=== PATIENT | female | born 1980 | race Two or more races ===

== ENCOUNTER → 2017-09-02 17:10 | Outpatient (CLI) | payer OTHER ==
[~2017-09-02] VITALS: Ht 152.4 cm; Wt 104.3 kg
[~2017-09-02 17:10] MED LIST: [UNRECOGNIZED DRUG - OTHER] PO
== END | disposition home or self-care (01) ==
LOC: PPHC 17:10
DX: R22.1 Localized swelling, mass and lump, neck (principal)

== ENCOUNTER → 2017-11-01 15:17 | Outpatient (CLI) | payer OTHER | END | disposition home or self-care (01) | LOC: RAD 15:17 | DX: M51.36 Other intervertebral disc degeneration, lumbar region (principal) ==

== ENCOUNTER → 2017-12-18 | Outpatient (CLI) | payer OTHER | END | disposition home or self-care (01) | LOC: PPHC 08:48 | DX: L03.311 Cellulitis of abdominal wall (principal) ==

== ENCOUNTER 2018-08-01 17:40 | Outpatient (CLI) | payer OTHER | END 2018-08-01 17:45 | disposition home or self-care (01) | LOC: LAB 17:40 | DX: J11.1 Influenza due to unidentified influenza virus with other respiratory manifestations (principal) ==

== ENCOUNTER 2019-08-10 16:24 | Emergency (ER) | payer OTHER ==
[~2019-08-10] VITALS: Ht 167.6 cm; Wt 109.3 kg
== END 2019-08-10 18:46 | disposition home or self-care (01) ==
LOC: ER 16:24
DX: S93.491A Sprain of other ligament of right ankle, initial encounter (principal); M25.571 Pain in right ankle and joints of right foot; X50.1XXA Overexertion from prolonged static or awkward postures, initial encounter; Y93.89 Activity, other specified; Y92.89 Other specified places as the place of occurrence of the external cause; Y99.8 Other external cause status

== ENCOUNTER 2019-11-27 08:00 | Outpatient (CLI) | payer OTHER | END 2019-11-27 08:08 | disposition home or self-care (01) | LOC: MAMO-SONO 08:00 | DX: Z12.31 Encounter for screening mammogram for malignant neoplasm of breast (principal); N64.4 Mastodynia ==

== ENCOUNTER 2020-02-15 15:31 | Outpatient (CLI) | payer OTHER | END 2020-02-16 08:46 | disposition home or self-care (01) | LOC: OFIC 805 15:31 | PROVIDERS: ATTEND Otolaryngology | DX: R22.1 Localized swelling, mass and lump, neck (principal); H92.02 Otalgia, left ear ==

== ENCOUNTER 2020-02-16 07:11 | Outpatient (CLI) | payer OTHER | END 2020-02-16 10:21 | disposition home or self-care (01) | LOC: SONOGRAMA 07:11 | PROVIDERS: ATTEND Otolaryngology | DX: R22.1 Localized swelling, mass and lump, neck (principal) ==

== ENCOUNTER 2020-03-20 18:02 | Outpatient (CLI) | payer OTHER | END 2020-03-20 18:25 | disposition home or self-care (01) | LOC: OFIC 805 18:02 | PROVIDERS: ATTEND Otolaryngology | DX: R59.1 Generalized enlarged lymph nodes (principal) ==